=== PATIENT | female | born 1955 | race Caucasian/White ===

== ENCOUNTER 2022-08-23 17:07 | Emergency (ER) | payer MEDICARE, OTHER ==
[2022-08-23] MEDS ORDERED: Albuterol/Ipratropium 3.0-0.5 MG/3 ML Neb Soln NEB ONE (17:30)
[2022-08-23] MEDS ORDERED: methylPREDNISolone Sodium Succinate 125 MG/2 ML SDV IVPUSH ONE (17:35)
[2022-08-23] MEDS ORDERED: Sodium Chloride 0.9% 10 ML Syringe FLUSH PRN (17:36)
[2022-08-23] MEDS ORDERED: Benzonatate 100 MG Cap PO ONE (17:36)
[2022-08-23 18:15] LABS: CORONAVIRUS COVID-19 NAA NEGATIVE (NEGATIVE); RESPIRATORY SYNCYTIAL VIR NAA NEGATIVE (NEGATIVE)
[2022-08-23 18:24] LABS: PTT,PARTIAL THROMBOPLSTIN TIME 27.2 SEC (22.0-34.0)
[2022-08-23] MEDS ORDERED: Loratadine 10 MG Tab PO ONE (18:42)
[2022-08-23] MEDS ORDERED: Albuterol 6.7 GM Inhaler INH ONE (18:43)
[2022-08-23 19:37] VITALS: BP 132/87; PULSE 87
== END 2022-08-23 19:43 | disposition home or self-care (01) ==
LOC: DL.ED 17:07
DX: J45.909 Unspecified asthma, uncomplicated (principal); E66.9 Obesity, unspecified; Z68.41 Body mass index [BMI] 40.0-44.9, adult; Z88.8 Allergy status to other drugs, medicaments and biological substances; Z20.822 Contact with and (suspected) exposure to COVID-19
CPT/HCPCS: 0241U; 36415; 71046; 80053; 83605; 83880; 84484; 85025; 85379; 85610; 85730; 86140; 93005; 96374; 99285; A9270; J2930; J3490; J7620-GY

== ENCOUNTER 2023-01-12 06:53 | Day surgery (SDC) | payer MEDICARE, OTHER ==
[~2023-01-12 06:53] MED LIST: Dextrose 5%-0.45% NaCl 1,000 ML IV SCH; Sodium Chloride 0.9% 10 ML Syringe FLUSH PRN; Sodium Chloride 0.9% 10 ML Syringe FLUSH SCH
[2023-01-12 09:22] VITALS: BP 120/64; PULSE 50
== END 2023-01-12 09:40 | disposition home or self-care (01) ==
LOC: DL.ENDO 06:53
PROVIDERS: ATTEND Internal Medicine Gastroenterology
DX: K62.1 Rectal polyp (principal); E66.09 Other obesity due to excess calories; Z47.1 Aftercare following joint replacement surgery; Z88.6 Allergy status to analgesic agent; Z79.899 Other long term (current) drug therapy; Z68.41 Body mass index [BMI] 40.0-44.9, adult
CPT/HCPCS: 00811; 45385; J7042; 88305